=== PATIENT | male | born 1985 | race African-American/Black ===

== ENCOUNTER 2017-12-10 17:02 | Emergency (ER) | payer OTHER ==
[~2017-12-10] VITALS: Ht 180.3 cm; Wt 146.5 kg
--- OUTSIDE RECORDS SUMMARY | 2017-12-10 17:05 | XMS REPORT | Clinical Summary ---
Author Author [facility] Organization [facility] Address Unknown Phone Unavailable Care Team Providers Care Regional Transportation Manager Name Role Phone PCP Unavailable Allergies No Known Allergies Current Medications Prescription Sig. Disp. Refills Start End Date Status Date acetaminophen (TYLENOL) Take 2 tablets by mouth 20 tablet 0 06/10/19 Active 325 mg tabletIndications: every 6 hours as needed 17 Acute right ankle pain for Pain. loratadine (CLARITIN) 10 Take 1 tablet by mouth 30 tablet 0 06/10/19 Active mg tabletIndications: daily. 17 Environmental allergies miconazole (MICOTIN) 2 % Apply to affected area 2 28.35 g 0 07/27/19 Active topical creamIndications: times daily. 17 Tinea versicolor naproxen (NAPROSYN) 500 Take 1 tablet by mouth 2 30 tablet 0 09/10/20 Active mg tabletIndications: times daily as needed for 17 Acute pain of left knee Pain. citalopram (CELEXA) 20 mg Take 1 tablet by mouth 28 tablet 0 03/06/19 Active tabletIndications: daily. 18 Medication refill risperiDONE (RISPERDAL) 1 Take 1 tablet by mouth at 28 tablet 0 03/06/19 Active mg tabletIndications: bedtime nightly. 18 Mood disorder GUAIFENESIN-DM CR 30-600 Take 1 tablet by mouth 2 20 tablet 0 03/06/20 Active mg tabletIndications: URI times daily. 18 with cough and congestion loratadine (CLARITIN) 10 Take 1 tablet by mouth 14 tablet 0 20 Active mg tabletIndications: URI daily. 18 with cough and congestion risperiDONE (RISPERDAL) 1 Take 0.5 tablets by mouth 14 tablet 0 08/02/20 03/06/20 Discontin mg tabletIndications: at bedtime nightly. 17 18 ued Mood disorder Active Problems Problem Noted Date Cough 03/20/2017 Screening for depression 01/01/2014 Screening for alcoholism 01/01/2014 Cocaine abuse 01/01/2014 Smoker 01/01/2014 Obesity, unspecified 01/01/2014 Homeless 10/02/2013 Pruritic rash Suicidal ideation Medication refill Encounters Date Type Specialty Care Team Description 12/01/2017 Office Visit Family Practice Brad Garcia, THALIA Screening for STD (sexually transmitted disease) (Primary Dx); Stress headache; Screening for HIV (human immunodeficiency virus) 05/26/2017 Telephone [facility] Eusebio Sánchez Appointment Related Questions (remoinder) 04/29/2017 Office Visit Family Practice Brad Garcia NP Dry skin (Primary Dx) 04/28/2017 Telephone [facility] Eusebio Sánchez Appointment Related Questions (reminder) 03/20/2017 Emergency Emergency Medicine Cough (Primary Dx) 03/17/2017 Telephone Social Work Eusebio Sánchez Appointment Related Questions (reminder) 03/06/2017 Office Visit Family Practice Amber Cisse NP Medication refill (Primary Dx); Mood disorder; URI with cough and congestion 02/26/2017 Telephone Social Work Eusebio Sánchez Appointment Related Questions (reminder) after 12/09/2016 Immunizations Name Dates Previously Given Next Due PPD 05/26/2016 Tdap Tetanus, diphtheria, 01/01/2014 acellular pertussis Vaccine Family History Medical History Relation Name Comments Psychiatry Brother Psychiatry Father Diabetes Maternal Grandmother Psychiatry Mother Psychiatry Sister Relation Name Status Comments Brother Alive Father Alive Maternal Grandmother Mother Alive Sister Alive Social History Tobacco Use Types Packs/Day Years Used Date Current Some Day Smoker Cigarettes 1 15 Smokeless Tobacco: Never Used Tobacco Cessation: Ready to Quit: No; Counseling Given: Yes Comments: health risks discussed with pt., advised smoking cessation Alcohol Use Drinks/Week oz/Week Comments No Sex Assigned at Date Recorded Not on file Last Filed Vital Signs Vital Sign Reading Time Taken Blood Pressure 129/81 12/01/2017 2:49 PM CDT Pulse 79 12/01/2017 2:49 PM CDT Temperature 37.1 C (98.7 F) 12/01/2017 2:49 PM CDT Respiratory Rate 14 03/20/2017 4:27 AM INSULATOR HELPER Oxygen Saturation 98% 03/20/2017 4:27 AM INSULATOR HELPER Inhaled Oxygen - - Concentration Weight 145.6 kg (321 lb) 12/01/2017 2:49 PM CDT Height 180.3 cm (5' 11") 12/01/2017 2:49 PM CDT Body Mass Index 44.77 12/01/2017 2:49 PM CDT Plan of Treatment Health Maintenance Due Date Last Done Comments IMM Influenza Seasonal 11/22/2017 Oct to April (>/=19 yrs) Goals Patient Goal Type Goal Recent Progress Patient-Stat Author ed? Lifestyle Obtain more stable No [place]as[place] housing situation [facility] Weight Weight < 200 lb (90.719 145.6 kg (321 lb) No Olsen-Jaswant kg) (12/01/2017 2:49 PM CDT) [facility] LVN Procedures Procedure Name Priority Date/Time Associated Diagnosis Comments POC HIV RAPID 1/2-FQHC Routine 12/01/2017 Screening for HIV (human Results for this MANUALLY ENTERED 3:49 PM CDT immunodeficiency virus) procedure are in the results section. CHLAMYDIA/GONORRHEA-AFFIL Routine 12/01/2017 Screening for STD IATE MANUALLY ENTERED 3:34 PM CDT (sexually transmitted disease) SYPHILIS MONITOR FOR Routine 12/01/2017 Screening for STD TREATMENT 3:34 PM CDT (sexually transmitted disease) XRAY CHEST 2 VIEWS STAT 03/20/2017 Cough Results for this 7:52 AM INSULATOR HELPER procedure are in the results section. after 12/09/2016 Results * POC HIV RAPID 1/2-FQHC MANUALLY ENTERED (12/01/2017 3:49 PM) Rapid HIV 1/2 Non Reactive * CHLAMYDIA/GONORRHEA-AFFILIATE MANUALLY ENTERED (12/01/2017 3:34 PM) Narrative Performed At Performing Organization Address City/State/Zipcode Phone Number [address], [address] [address] SYSTEM * SYPHILIS MONITOR FOR TREATMENT (12/01/2017 3:34 PM) Specimen Blood Narrative Performed At Performing Organization Address City/State/Zipcode Phone Number [address], [address] [address] SYSTEM * XRAY CHEST 2 VIEWS (03/20/2017 7:52 AM) Impressions Performed At IMPRESSION: SMS Right lower lobe peribronchial wall thickening may represent reactive airway disease or viral infection. Recommend repeat chest radiograph in 4-6 weeks. If the report is "FINALIZED" it indicates that the attending/staff radiologist has reviewed the images and agrees with the resident's interpretation. I have reviewed the study and agree with the findings in this report. Signed By: Manasa Álvarez MD, 03/20/2017 8:37 AM Narrative Performed At EXAMINATION:XRAY CHEST 2 VIEWS, Frontal and lateral SMS INDICATION: cough fever COMPARISON:None FINDINGS: TUBES/LINES:None LUNGS:No consolidations or edema. Right lower lobe peribronchial wall thickening. Triangular shaped opacity in the right midlung son may represent overlying tip of the scapula. PLEURA:No effusions or pneumothorax. HEART/MEDIASTINUM:Normal cardiomediastinal silhouette. MUSCULOSKELETAL:No acute findings. UPPER ABDOMEN: Normal Procedure Note Interface, Rad/Mammog In - 03/20/2017 8:42 AM INSULATOR HELPER EXAMINATION: XRAY CHEST 2 VIEWS, Frontal and lateral INDICATION: cough fever COMPARISON: None FINDINGS: TUBES/LINES: None LUNGS: No consolidations or edema. Right lower lobe peribronchial wall thickening. Triangular shaped opacity in the right midlung son may represent overlying tip of the scapula. PLEURA: No effusions or pneumothorax. HEART/MEDIASTINUM: Normal cardiomediastinal silhouette. MUSCULOSKELETAL: No acute findings. UPPER ABDOMEN: Normal IMPRESSION IMPRESSION: Right lower lobe peribronchial wall thickening may represent reactive airway disease or viral infection. Recommend repeat chest radiograph in 4-6 weeks. If the report is "FINALIZED" it indicates that the attending/staff radiologist has reviewed the images and agrees with the resident's interpretation. I have reviewed the study and agree with the findings in this report. Signed By: Manasa Álvarez MD, 03/20/2017 8:37 AM Performing Organization Address City/State/Zipcode Phone Number [facility] after 12/09/2016
--- OUTSIDE RECORDS SUMMARY | 2017-12-10 17:05 | XMS REPORT ---
[facility] Address Unknown Phone Unavailable Care Team Providers Care Eligibility Examiner Name Role Phone Unavailable Unavailable Problems This patient has no known problems. Allergies, Adverse Reactions, Alerts This patient has no known allergies or adverse reactions. Medications This patient has no known medications. Encounters Start Date/Time End Date/Time Encounter Type Admission Type Attending [facility] Facility Care Department Encounter ID 2017-12-01 14:41:03 2017-12-01 14:41:03 Outpatient [facility] [id number] 2017-05-27 00:00:00 2017-05-27 00:00:00 Outpatient [facility] [id number] 2017-05-07 00:00:00 2017-05-07 00:00:00 Outpatient [facility], [facility] [id number] 2017-04-29 15:42:28 2017-04-29 15:42:28 Outpatient [facility] [id number] 2017-04-29 00:00:00 2017-04-29 00:00:00 Outpatient [facility] [id number] 2017-03-20 07:40:46 2017-03-20 07:40:46 Emergency [facility] [id number] 2017-03-20 00:20:00 2017-03-20 00:20:00 Emergency [facility] [id number] 2017-03-18 00:00:00 2017-03-18 00:00:00 Outpatient [facility] [id number] 2017-03-06 10:06:51 2017-03-06 10:06:51 Outpatient [facility] [id number]
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
[2017-12-10] MEDS ORDERED: ACETAMINOPHEN 325 MG TAB PO ONE (18:15)
[2017-12-10] MEDS ORDERED: ONDANSETRON HCL 4 MG ORAL DISINTEGRATING TAB PO ONE (18:15)
== END 2017-12-10 18:38 | disposition home or self-care (01) ==
LOC: FSED 17:02
DX: S00.83XA Contusion of other part of head, initial encounter (principal); M54.2 Cervicalgia; W18.09XA Striking against other object with subsequent fall, initial encounter; Y99.0 Civilian activity done for income or pay; F17.210 Nicotine dependence, cigarettes, uncomplicated
CPT/HCPCS: 70450; 72125; 99284